=== PATIENT | male | born 1990 | race Two or more races ===

== ENCOUNTER 2017-12-17 11:27 | Emergency (ER) | payer SELFPAY ==
[2017-12-17 11:35] VITALS: BP 135/69; PULSE 110; TEMP 110.4; BMI 27.2
[2017-12-17] MEDS ORDERED: ONDANSETRON *ODT* 4 MG TABLET SL ONE (13:17)
[2017-12-17] MEDS ORDERED: ONDANSETRON *ODT* 4 MG TABLET ONE (13:21)
--- NOTE | 2017-12-17 13:22 | PDOC ---
History of Present Illness - General Chief Complaint: Respiratory Stated Complaint: NAUSEA/VOMITING Time Seen by Provider: 12/17/17 13:10 History Source: Patient Exam Limitations: No Limitations - History of Present Illness Severity: reports: mild, moderate Associated Symptoms: reports: chest pain/soreness, cough, dizziness, fever/ chills, nasal congestion Past History - Travel Traveled outside of the country in the last 30 days: No Close contact w/someone who was outside of country & ill: No - Past Medical History Allergies/Adverse Reactions: Allergies Allergy/AdvReac Type Severity Reaction Status Date / Time No Known Allergies Allergy Verified 12/17/17 11:35 Home Medications: Ambulatory Orders Ibuprofen 600 mg PO Q6H PRN #30 tablet 12/17/17 Oseltamivir Phosphate [Tamiflu -] 75 mg PO BID #10 capsule 12/17/17 COPD: No Other medical history: DENIES MEDICAL HX - Immunization History Immunization Up to Date: Yes - Suicide/Smoking/Psychosocial Hx Smoking History: Never smoked Have you smoked in the past 12 months: No Hx Alcohol Use: No Drug/Substance Use Hx: No Substance Use Type: None Review of Systems - Review of Systems Able to Perform ROS?: Yes Is the patient limited Uzbek proficient: Yes Constitutional: Yes: Symptoms Reported, See HPI, Chills, Fever, Loss of Appetite , Malaise HEENTM: Yes: Symptoms Reported, Nose Congestion, Mouth Pain, Difficulty Swallowing Respiratory: Yes: See HPI, Cough ABD/GI: Yes: See HPI, Nausea, Vomiting Musculoskeletal: Yes: Symptoms Reported Neurological: Yes: Symptoms reported, See HPI, Headache, Numbness All Other Systems: Reviewed and Negative *Physical Exam - Vital Signs Last Vital Signs Temp Pulse Resp BP Pulse Ox 110.4 F H 110 H 18 135/69 98 12/17/17 11:32 12/17/17 11:32 12/17/17 11:32 12/17/17 11:32 12/17/17 11:32 - Physical Exam General Appearance: Yes: Nourished, Appropriately Dressed, Apparent Distress, Mild Distress, Moderate Distress HEENT: positive: DONNY (glassy ), TMs Normal, Pharynx Normal, Pharyngeal Erythema , Nasal Congestion, Rhinorrhea Neck: positive: Supple, Lymphadenopathy (R), Lymphadenopathy (L) Respiratory/Chest: positive: Lungs Clear (course but clear), Normal Breath Sounds Cardiovascular: positive: Regular Rate Gastrointestinal/Abdominal: positive: Normal Bowel Sounds, Soft. negative: Tender, Guarding, Rebound, Tenderness Musculoskeletal: positive: Normal Inspection Extremity: positive: Normal Capillary Refill, Normal Range of Motion. negative : Tender Integumentary: positive: Normal Color, Dry, Warm, Pale Neurologic: positive: psychology teacher II-XII NML intact, Fully Oriented, Alert, Normal Mood/ Affect, Normal Response Progress Note - Progress Note Progress Note: Upper respiratory infection, probable influenza and within timeframe for Tamiflu treatment. We'll provide Zofran also for nauseousness and Tamiflu. *DC/Admit/Observation/Transfer Diagnosis at time of Disposition: Influenzal acute upper respiratory infection - Discharge Dispostion Disposition: HOME Condition at time of disposition: Stable Admit: No - Referrals - Patient Instructions Printed Discharge Instructions: DI for Viral Upper Respiratory Infection -- Adult Additional Instructions: Rest, drink lots of fluids: Teas, water, soups, Pedialyte Saltwater gargles Steamy showers/seem to face break up mucus Old-fashioned treatments help! Avoid contact with others until fevers and cough resolved as this is very contagious Lots of handwashing and good hygiene Continue [id number] medications for symptomatic relief Tylenol or Motrin for fever and pain Take all of Tamiflu as directed: 1 tab every 12 hours for 5 days Followup with private physician in one to 2 days as needed or if worsening Return to emergency department for worsened symptoms, fevers, dehydration Influenza takes between 5 and 7 days for resolution To not participate in any activity, work, or school until fevers and cough are gone for at least one day - Post Discharge Activity Forms/Work/School Notes: Back to Work
== END 2017-12-17 13:37 | disposition home or self-care (01) ==
LOC: JERFT 11:27
DX: J06.9 Acute upper respiratory infection, unspecified (principal)
CPT/HCPCS: 99281-25

== ENCOUNTER 2021-05-11 10:05 | Emergency (ER) | payer OTHER ==
[2021-05-11 10:22] VITALS: BP 157/79; PULSE 64; TEMP 98.5; BMI 27.9
[2021-05-11 11:37] LABS: PH,URINE 7.5 (5.0-8.0); URINE APPEARANCE CLEAR; URINE BILIRUBIN NEGATIVE (NEGATIVE); URINE COLOR YELLOW; URINE GLUCOSE (UA) NEGATIVE (NEGATIVE); URINE KETONE NEGATIVE (NEGATIVE); URINE LEUK ESTERASE NEGATIVE (NEGATIVE); URINE NITRITE NEGATIVE (NEGATIVE); URINE PROTEIN NEGATIVE (NEGATIVE)
== END 2021-05-11 12:39 | disposition home or self-care (01) ==
LOC: JERFT 10:05
DX: K14.6 Glossodynia (principal); R30.0 Dysuria
CPT/HCPCS: 36415; 81003; 87086; 87491; 87591; 99283-25